=== PATIENT | male | born 1955 | race Caucasian/White ===

== ENCOUNTER 2023-08-30 17:18 | Emergency (ER) | payer OTHER ==
[2023-08-30 17:30] VITALS: BP 155/57; PULSE 51; RESP 16; TEMP 98; BMI 24.8
[2023-08-30] MEDS ORDERED: AMPICILLIN NA/SULBACTAM NA 3 GM VIAL ONE (18:39)
[2023-08-30] MEDS: AMPICILLIN NA/SULBACTAM NA 3 GM in DEXTROSE 5%-WATER 100 ML IVPB ONE (18:47)
[2023-08-30 18:49] LABS: BASO % 0.3 % (0-2.0); EOS % 1.8 % (0-4.5); HEMATOCRIT 40.4 % (35.4-49); HEMOGLOBIN 13.8 GM/dL (11.7-16.9); LYMPH % 19.1 % (8-40); MCH 31.2 pg (25.7-33.7); MCHC 34.2 g/dl (32.0-35.9); MEAN CELL VOLUME 91.4 fl (80-96); MEAN PLT VOLUME 8.5 fl (7.5-11.1); MONO % 9.9 % (3.8-10.2); NEUT % 68.9 % (42.8-82.8); PLATELET COUNT 239 10^3/uL (134-434); RBC 4.42 M/mm3 (4.00-5.60); RDW 13.6 % (11.9-15.9); WHITE BLOOD COUNT 9.1 K/mm3 (4.0-10.0)
[2023-08-30 18:57] LABS: INR 1.13 (0.83-1.09); PROTHROMBIN TIME (PATIENT) 13.1 SEC (9.7-13.0)
[2023-08-30 19:00] LABS: ACTIVATED PTT 30.4 SECONDS (25.2-36.5)
[2023-08-30 19:04] LABS: POTASSIUM 3.8 mmol/L (3.5-5.1)
[2023-08-30 19:06] LABS: CALCIUM 8.8 mg/dL (8.5-10.1)
[2023-08-30 19:07] LABS: ALBUMIN 3.9 g/dl (3.4-5.0); BLOOD UREA NITROGEN 23.3 mg/dL (7-18)
[2023-08-30 19:10] LABS: CREATININE 1.1 mg/dL (0.55-1.3)
[2023-08-30 19:12] LABS: BILIRUBIN,TOTAL 0.7 mg/dL (0.2-1); TOT PROT 7.2 g/dl (6.4-8.2)
[2023-08-30] MEDS ORDERED: VANCOMYCIN 1 GRAM (PRE-DOCKED) 1,000 MG/250 ML BAG IVPB ONE (19:30)
[2023-08-30] MEDS: VANCOMYCIN 1,000 MG in DEXTROSE 5%-WATER - 250 ML IVPB ONE (19:44)
== END 2023-08-30 19:57 | disposition short-term general hospital (02) ==
LOC: JER 17:18
DX: L03.114 Cellulitis of left upper limb (principal); Z20.822 Contact with and (suspected) exposure to COVID-19
CPT/HCPCS: 0241U-QW; 36415; 73130-TC-LT-FY; 80053; 83605; 85025; 85610; 85730; 93005; 93010; 99285-25